=== PATIENT | male | born 2000 | race Caucasian/White ===

== ENCOUNTER 2022-06-12 11:11 | Emergency (ER) | payer OTHER ==
[~2022-06-12] VITALS: Ht 180.3 cm; Wt 67.3 kg
[~2022-06-12 11:11] MED LIST: AMOX1TAB16 PO
[2022-06-12 11:17] VITALS: BP 134/83
== END 2022-06-12 12:56 | disposition home or self-care (01) ==
LOC: EMS 11:11
DX: L03.114 Cellulitis of left upper limb (principal); F17.210 Nicotine dependence, cigarettes, uncomplicated; F19.90 Other psychoactive substance use, unspecified, uncomplicated
CPT/HCPCS: 99281; Z7502